=== PATIENT | female | born 1955 ===

== ENCOUNTER 2017-09-25 07:55 | Day surgery (SDC) | payer MEDICARE ==
[2017-09-18 09:09] VITALS: BMI 38.0
[2017-09-25] MEDS ORDERED: Acetylcholine 1% Opth System Pack IO ONE (08:30)
[2017-09-25] MEDS ORDERED: EPINEPHrine 1 mg/ml (1:1000) Inj ONE (08:31)
[2017-09-25] MEDS ORDERED: Tetracaine 0.5% Ophth 2 ML BOTTLE ONE (08:31)
[2017-09-25] MEDS ORDERED: Lidocaine 1% 20 MG/2 ML PF AMP ONE (08:31)
[2017-09-25] MEDS ORDERED: CA CL/K CL/NA CL 500 ML IR ONE (08:32)
[2017-09-25] MEDS ORDERED: BSS 15 ML 45 ML IR ONE (08:32)
[2017-09-25] MEDS ORDERED: Chondroitin/Hyaluronate Opth Syringe KIT (0.55 ml-0.5 ml) IO ONE (08:32)
[2017-09-25] MEDS ORDERED: Phenylephrine 2.5% Opht Soln OD ONE ×2 (09:00→09:30)
[2017-09-25] MEDS ORDERED: Tropicamide 1% Opht 150 DROP/15 ML RIGHTEYE ONE (09:00)
[2017-09-25] MEDS ORDERED: Flurbiprofen 0.3% Opht SOLN OD ONE (09:00)
[2017-09-25] MEDS ORDERED: Povidone Iodine 5% Opht SOLUTION ONE (09:06)
[2017-09-25] MEDS ORDERED: Lactated Ringer's 1,000 ML IV ONE (09:15)
[2017-09-25] MEDS ORDERED: Tropicamide 1% Opht 150 DROP/15 ML OD ONE (09:30)
[2017-09-25] MEDS ORDERED: Flurbiprofen 0.3% Opht SOLN OS ONE (09:30)
[2017-09-25] MEDS ORDERED: Midazolam 2 MG/2 ML VIAL ONE (11:27)
[2017-09-25] MEDS: Maxitrol Opht Susp ONE ×2 (11:41→11:52)
[2017-09-25] MEDS: Pilocarpine 1% Opht Soln ONE ×3 (11:41→11:52)
[2017-09-25 13:20] VITALS: PULSE 76
[2017-09-25 13:38] VITALS: BP 135/75; RESP 20; TEMP 98.2; O2SAT 99
--- NOTE | 2017-09-26 11:21 | OP ---
PROCEDURE DATE : 09/25/2017 SURGEON: DHAVAL CAMACHO MD ANESTHESIOLOGIST: JOAN CHANG MD ANESTHESIA: LOCAL / IV SEDATION PREOPERATIVE DIAGNOSIS: CATARACT RIGHT EYE. POSTOPERATIVE DIAGNOSIS: CATARACT RIGHT EYE. OPERATION: CLEAR CORNEAL PHACOEMULSIFICATION WITH LENS IMPLANT RIGHT EYE. PREPARATION AND PROCEDURE: After the patient was prepped and draped in the usual manner for sterile ophthalmic surgery, local IV sedation was administered ; eye seals were applied to the upper and lower lid margins and an adult wire lid speculum was placed within the lids. Under microsurgical control, a two- step clear corneal incision was made into the anterior chamber. The initial incision was perpendicular to the corneal plane. The second incision with the keratome was placed at a 45-degree angle to the first incision. One cc of one percent Xylocaine MPF was instilled into the anterior chamber to achieve proper intraocular anesthesia. At this time, the Viscoelastic was injected into the anterior chamber for protection of the endothelium and for maintenance of the chamber depth. A 360-degree continuous curvilinear capsulorrhexis was performed using a pre-bent 25-gauge needle. Hydrodissection and hydrodelineation were performed using a Hay cannula and balanced salt solution. Utilizing the tip of the Hay cannula, the nucleus was rotated freely within the capsular bag. A standard one-handed phacoemulsification was utilized at this time for sculpting and rotating of the nucleus. The nucleus was fragmented in its entirety and aspirated without any consequence. A standard I&A was carried out for the residual cortical material. No residual material was noted within the capsular bag. The posterior capsule was noted to be clear. Additional Viscoelastic was injected into the capsular bag in preparation for lens implantation. After this has been satisfactorily achieved the intraocular lens injected through the corneal incision into the capsular bag. The intraocular lens was manipulated until it was properly oriented and the Viscoelastic was evacuated from the capsular bag and anterior chamber. The anterior chamber was reformed with balanced salt solution. The corneal incision was irrigated with BSS. The intraocular pressure was found to be within normal limits. This terminated the procedure. The speculum and lid drapes were removed. TobraDex ophthalmic suspension and Pilocarpine 1% drops one drop was applied to the eye. POSTOPERATIVE CONDITION: The patient was brought to the Post anesthesia Recovery area with stable vital signs. DDHAVAL WESTBROOK MD
== END 2017-09-25 14:41 | disposition home or self-care (01) ==
LOC: H.OPSURG 07:55
PROVIDERS: ATTEND Ophthalmology
DX: H25.11 Age-related nuclear cataract, right eye (principal); E03.9 Hypothyroidism, unspecified; Z85.3 Personal history of malignant neoplasm of breast; M19.90 Unspecified osteoarthritis, unspecified site
CPT/HCPCS: 66984; 82948; J0171; J2250; J3010; J7120; V2632

== ENCOUNTER 2017-09-26 06:26 | Emergency (ER) | payer MEDICARE ==
[2017-09-26 06:27] VITALS: BMI 38.0
[2017-09-26 07:11] VITALS: PULSE 88; RESP 18; TEMP 98.4; O2SAT 98
[2017-09-26] MEDS ORDERED: Albuterol 0.083% Inhal Sol (2.5 mg/3 mL) UD INH STA (08:04)
--- NOTE | 2017-09-26 08:54 | RAD ---
HISTORY: cough with wheezing COMPARISON: 01/12/2010 TECHNIQUE: Chest PA and lateral FINDINGS: LUNGS: No active pulmonary disease. PLEURA: No significant pleural effusion identified. No pneumothorax apparent. CARDIOVASCULAR: No radiographic findings to suggest acute or significant cardiovascular disease. OSSEOUS STRUCTURES: No significant abnormalities. VISUALIZED UPPER ABDOMEN: Normal. OTHER FINDINGS: None. IMPRESSION: No active disease. No significant interval change compared to the prior examination(s). Please note: No preliminary interpretation of this examination rendered by emergency department personnel. Yes
--- NOTE | 2017-09-26 09:01 | ED PDOC ---
HPI: CCC, URI, Sore Throat Time Seen by Provider: 09/26/17 07:17 Chief Complaint (Nursing): Flu-like Symptoms Chief Complaint (Provider): Cough History Per: Patient History/Exam Limitations: no limitations Have you had recent travel within the past 21 days to any of the following countries: [place], [place], [place] or [place]?: No Onset/Duration Of Symptoms: Hrs Current Symptoms Are (Timing): Still Present Sick Contacts (Context): None Associated Symptoms: Cough, Sputum. denies: Myalgias Additional History Per: Patient Additional Complaint(s): 62yo female with past medical history of asthma, diabetes, hypertension, hypercholesterolemia, presents to ED for evaluation of cough with sputum, present all last night. Patient denies ay associated fever, chills, bodyaches, shortness of breath. No other complaints. Past Medical History Vital Signs: Last Vital Signs Temp 98.4 F 09/26/17 07:08 Pulse 88 09/26/17 07:08 Resp 18 09/26/17 07:08 BP 139/85 09/26/17 07:08 Pulse Ox 98 09/26/17 09:04 - Medical History PMH: Arthritis, Diabetes, HTN, Hypercholesterolemia, Rheumatoid Arthritis Denies: Chronic Kidney Disease - Surgical History Surgical History: No Surg Hx - Family History Family History: States: No Known Family Hx - Living Arrangements Living Arrangements: With Family - Social History Current smoker - smoking cessation education provided: No Ex-Smoker (has not smoked in the last 12 months): No Alcohol: None Drugs: Denies - Immunization History Hx Tetanus Toxoid Vaccination: Yes Hx Influenza Vaccination: No Hx Pneumococcal Vaccination: No - Home Medications Home Medications: Ambulatory Orders Medication Instructions Recorded Lisinopril/Hydrochlorothiazide 1 each PO DAILY 11/13/16 [Lisinopril-Hctz 20-12.5 mg Tab] MetFORMIN [glucOPHAGE] 1,000 mg PO BID 11/13/16 Metoprolol Tartrate [Lopressor] 25 mg PO DAILY 11/13/16 Aspirin 81 mg PO DAILY 04/09/17 Atorvastatin 40 mg PO HS 04/09/17 GlipiZIDE 1 each PO DAILY 04/09/17 Promethazine DM [Phenergan DM 10 ml PO Q8H PRN #120 ml 09/26/17 Syrup] - Allergies Allergies/Adverse Reactions: Allergies Allergy/AdvReac Type Severity Reaction Status Date / Time No Known Allergies Allergy Verified 09/26/17 07:08 Review of Systems ROS Statement: Except As Marked, All Systems Reviewed And Found Negative Constitutional: Negative for: Fever, Chills, Malaise Respiratory: Positive for: Cough, Sputum. Negative for: Shortness of Breath Physical Exam - Reviewed Nursing Documentation Reviewed: Yes Vital Signs Reviewed: Yes - Physical Exam Appears: Positive for: Non-toxic, No Acute Distress Head Exam: Positive for: ATRAUMATIC, NORMAL INSPECTION, NORMOCEPHALIC Skin: Positive for: Normal Color Eye Exam: Positive for: Normal appearance Neck: Positive for: Normal, Supple Cardiovascular/Chest: Positive for: Regular Rate, Rhythm Respiratory: Positive for: Normal Breath Sounds. Negative for: Wheezing, Respiratory Distress Neurologic/Psych: Positive for: Alert, Oriented. Negative for: Motor/Sensory Deficits - ECG O2 Sat by Pulse Oximetry: 98 (RA) Pulse Ox Interpretation: Normal Medical Decision Making Medical Decision Making: Time: 804 Impression: Cough, rule out flu Plan: -- CXR -- Albuterol -- Rapid flu Reassess Time: 903 Chest x-ray FINDINGS: LUNGS: No active pulmonary disease. PLEURA: No significant pleural effusion identified. No pneumothorax apparent. CARDIOVASCULAR: No radiographic findings to suggest acute or significant cardiovascular disease. OSSEOUS STRUCTURES: No significant abnormalities. VISUALIZED UPPER ABDOMEN: Normal OTHER FINDINGS: None. IMPRESSION: No active disease. No significant interval change compared to the prior examination(s). Scribe Attestation: Documented by Staci Krishnan acting as a scribe for Jacque Noguera MD. Provider Attestation: All medical record entries made by the Scribe were at my direction and personally dictated by me. I have reviewed the chart and agree that the record accurately reflects my personal performance of the history, physical exam, medical decision making, and the department course for this patient. I have also personally directed, reviewed, and agree with the discharge instructions and disposition. Disposition - Clinical Impression Clinical Impression: URI (upper respiratory infection) - Patient ED Disposition Is Patient to be Admitted: No Doctor Will See Patient In The: Office Counseled Patient/Family Regarding: Diagnosis, Need For Followup, Rx Given - Disposition Referrals: Ricardo Rodriges MD [Primary Care Provider] - Disposition: Routine/Home Disposition Time: 09:12 Condition: STABLE Prescriptions: Promethazine DM [Phenergan DM Syrup] 10 ml PO Q8H PRN #120 ml PRN Reason: Cough Instructions: Upper Respiratory Infection (ED) Forms: [facility] ([place]) - POA Present On Arrival: None
[2017-09-26 09:52] VITALS: BP 132/78
== END 2017-09-26 09:52 | disposition home or self-care (01) ==
LOC: H.ER 06:26
DX: J06.9 Acute upper respiratory infection, unspecified (principal); E11.9 Type 2 diabetes mellitus without complications; E78.00 Pure hypercholesterolemia, unspecified; I10 Essential (primary) hypertension; M06.9 Rheumatoid arthritis, unspecified; Z79.82 Long term (current) use of aspirin; Z79.84 Long term (current) use of oral hypoglycemic drugs

== ENCOUNTER 2017-10-23 10:11 | Day surgery (SDC) | payer MEDICARE ==
[2017-10-23] MEDS ORDERED: Acetylcholine 1% Opth System Pack IO ONE ×2 (10:18→14:39)
[2017-10-23] MEDS ORDERED: Maxitrol Opht Susp ONE (10:18)
[2017-10-23] MEDS ORDERED: Pilocarpine 1% Opht Soln ONE (10:19)
[2017-10-23] MEDS ORDERED: Lidocaine 1% 20 MG/2 ML PF AMP ONE (10:19)
[2017-10-23] MEDS ORDERED: Tetracaine 0.5% Ophth 2 ML BOTTLE ONE (10:19)
[2017-10-23] MEDS ORDERED: EPINEPHrine 1 mg/ml (1:1000) Inj ONE (10:19)
[2017-10-23] MEDS ORDERED: Povidone Iodine 5% Opht SOLUTION ONE (10:20)
[2017-10-23] MEDS ORDERED: CA CL/K CL/NA CL 500 ML IR ONE (10:20)
[2017-10-23] MEDS ORDERED: Chondroitin/Hyaluronate Opth Syringe KIT (0.55 ml-0.5 ml) IO ONE ×2 (10:20→14:38)
[2017-10-23] MEDS ORDERED: BSS 15 ML 30 ML IR ONE (10:20)
[2017-10-23] MEDS ORDERED: BSS 15 ML 15 ML IR ONE (10:20)
[2017-10-23 12:22] VITALS: BMI 50.5
[2017-10-23] MEDS ORDERED: Phenylephrine 2.5% Opht Soln OD ONE (12:30)
[2017-10-23] MEDS ORDERED: Flurbiprofen 0.3% Opht SOLN OS ONE (12:30)
[2017-10-23] MEDS ORDERED: Tropicamide 1% Opht 150 DROP/15 ML OS ONE (12:30)
[2017-10-23] MEDS ORDERED: Phenylephrine 2.5% Opht Soln OS ONE (12:30)
[2017-10-23 12:38] VITALS: RESP 18
[2017-10-23] MEDS ORDERED: Lidocaine 1.5% PF (20ml) amp IJ ONE (14:36)
[2017-10-23] MEDS ORDERED: Tetracaine 0.5% Ophth 2 ML BOTTLE OU ONE (14:36)
[2017-10-23] MEDS ORDERED: EPINEPHrine 1 mg/ml (1:1000) Inj IV ONE (14:37)
[2017-10-23] MEDS ORDERED: Povidone Iodine Topical 10% Sol TOP ONE (14:40)
[2017-10-23] MEDS ORDERED: Maxitrol Opht Susp OS ONE (14:40)
[2017-10-23] MEDS ORDERED: Pilocarpine 1% Opht Soln OS ONE (14:41)
[2017-10-23] MEDS ORDERED: Midazolam 2 MG/2 ML VIAL ONE (14:44)
[2017-10-23] MEDS ORDERED: Lactated Ringer's 1,000 ML IV ONE (14:47)
[2017-10-23 15:54] VITALS: O2SAT 97
[2017-10-23 16:29] VITALS: BP 132/76; PULSE 74; TEMP 98.2
--- NOTE | 2017-10-25 11:16 | OP ---
PROCEDURE DATE : 10/23/2017 SURGEON: DHAVAL CAMACHO MD ANESTHESIOLOGIST: JOAN CHANG MD ANESTHESIA: LOCAL / IV SEDATION PREOPERATIVE DIAGNOSIS: CATARACT LEFT EYE. POSTOPERATIVE DIAGNOSIS: CATARACT LEFT EYE. OPERATION: CLEAR CORNEAL PHACOEMULSIFICATION WITH LENS IMPLANT LEFT EYE. PREPARATION AND PROCEDURE: After the patient was prepped and draped in the usual manner for sterile ophthalmic surgery, local IV sedation was administered ; eye seals were applied to the upper and lower lid margins and an adult wire lid speculum was placed within the lids. Under microsurgical control, a two- step clear corneal incision was made into the anterior chamber. The initial incision was perpendicular to the corneal plane. The second incision with the keratome was placed at a 45-degree angle to the first incision. One cc of one percent Xylocaine MPF was instilled into the anterior chamber to achieve proper intraocular anesthesia. At this time, the Viscoelastic was injected into the anterior chamber for protection of the endothelium and for maintenance of the chamber depth. A 360-degree continuous curvilinear capsulorrhexis was performed using a pre-bent 25-gauge needle. Hydrodissection and hydrodelineation were performed using a Hay cannula and balanced salt solution. Utilizing the tip of the Hay cannula, the nucleus was rotated freely within the capsular bag. A standard one-handed phacoemulsification was utilized at this time for sculpting and rotating of the nucleus. The nucleus was fragmented in its entirety and aspirated without any consequence. A standard I&A was carried out for the residual cortical material. No residual material was noted within the capsular bag. The posterior capsule was noted to be clear. Additional Viscoelastic was injected into the capsular bag in preparation for lens implantation. After this has been satisfactorily achieved the intraocular lens injected through the corneal incision into the capsular bag. The intraocular lens was manipulated until it was properly oriented and the Viscoelastic was evacuated from the capsular bag and anterior chamber. The anterior chamber was reformed with balanced salt solution. The corneal incision was irrigated with BSS. The intraocular pressure was found to be within normal limits. This terminated the procedure. The speculum and lid drapes were removed. TobraDex ophthalmic suspension and Pilocarpine 1% drops one drop was applied to the eye. POSTOPERATIVE CONDITION: The patient was brought to the Post anesthesia Recovery area with stable vital signs. DDHAVAL WESTBROOK MD
== END 2017-10-23 16:30 | disposition home or self-care (01) ==
LOC: H.OPSURG 10:11
PROVIDERS: ATTEND Ophthalmology
DX: H25.11 Age-related nuclear cataract, right eye (principal); M19.90 Unspecified osteoarthritis, unspecified site; E11.9 Type 2 diabetes mellitus without complications; E78.5 Hyperlipidemia, unspecified; I10 Essential (primary) hypertension; K21.9 Gastro-esophageal reflux disease without esophagitis
CPT/HCPCS: 66984; 82948; J0171; J2250; J3010; J7120; V2632